=== PATIENT | female | born 1960 | race Caucasian/White ===

== ENCOUNTER 2018-04-23 01:30 | Emergency (ER) | payer OTHER ==
[~2018-04-23] VITALS: Ht 170.2 cm; Wt 111.1 kg
[2018-04-23 01:35] VITALS: BP 128/81
--- NOTE | 2018-04-23 01:44 | NUR ---
PT TAKEN TO BED 4
--- NOTE | 2018-04-23 02:12 | NUR ---
PT PRESENTS TO ED WITH C/O BLE CELLULITIS X2 DAYS. PT BOTH LEG STARTED SWOLLEN AND REDNESS SINCE YESTERDAY AFTER PT SCRATCH LEG. RT CALLE AND LT CAFT OPEN AREA NOTED. AAO X4, RESPIRATIONS EVEN AND UNLABORED. SKIN WARM PINK DRY, BLE CELLULITIS, C/O MILD PAIN. VSS, ER MD MADE AWARE OF PT STATUS.
--- NOTE | 2018-04-23 03:06 | NUR ---
Patient discharged with v/s stable. Written and verbal after care instructions given and explained. Patient alert, oriented and verbalized understanding of instructions. Ambulatory with steady gait. All questions addressed prior to discharge. ID band removed. Patient advised to follow up with PMD. Rx of KEFLEX 500 MG, NAPROSYN 500 MG given. Patient educated on indication of medication including possible reaction and side effects. Opportunity to ask questions provided and answered.
[2018-04-23 03:07] VITALS: BP 156/90
== END 2018-04-23 03:06 | disposition home or self-care (01) ==
LOC: MED 01:30
DX: L03.115 Cellulitis of right lower limb (principal)
CPT/HCPCS: 99283